=== PATIENT | male | born 1940 | race Caucasian/White ===

== ENCOUNTER 2017-12-28 11:50 | Outpatient (REF) | payer MEDICARE, OTHER, SELFPAY ==
[2017-12-28 22:07] LABS: TSH (W/Ref FT4) 0.65 uIU/mL (0.358-3.74)
== END 2017-12-28 11:51 ==
LOC: NCHCN 11:50
PROVIDERS: Visit Provider Family Medicine
DX: E03.9 Hypothyroidism, unspecified (principal)
CPT/HCPCS: 84443

== ENCOUNTER 2018-01-11 15:52 | Outpatient (REF) | payer MEDICARE, OTHER, SELFPAY | END 2018-01-11 15:53 | LOC: NCHCN 15:52 | PROVIDERS: Visit Provider Family Medicine | DX: L08.89 Other specified local infections of the skin and subcutaneous tissue (principal); I87.2 Venous insufficiency (chronic) (peripheral); S81.802D Unspecified open wound, left lower leg, subsequent encounter | CPT/HCPCS: 87077; 87070; 87186; 87205 ==

== ENCOUNTER 2018-03-29 21:46 | Outpatient (REF) | payer MEDICARE, OTHER, SELFPAY ==
[2018-03-29 22:05] LABS: Abs Immature Grans 0.05 k/cumm (0.0-0.09); Absolute Basophil Count 0.05 k/cumm (0.0-0.2); Absolute Eosinophil Count 0.35 k/cumm (0.0-0.7); Absolute Lymphocyte Count 2.23 k/cumm (1.2-3.4); Absolute Monocyte Count 1.01 k/cumm (0.11-0.7); Absolute Neutrophil Count 6.76 k/cumm (1.2-6.7); Basophils % 0.5; Eosinophils % 3.3; HCT 50.8 % (40.0-50.0); HGB 16.4 g/dL (13.5-17.5); Immature Grans % 0.5; Lymphocytes % 21.3; Mean Corp. HGB Concentration 32.3 g/dL (32.0-36.0); Mean Corpuscular Hemoglobin 31.4 pg (27.0-33.0); Mean Corpuscular Volume 97.3 fL (80-95); Mean Platelet Volume 10.9 fL (8.0-11.0); Monocytes % 9.7; Neutrophils % 64.7; Platelet Count 249 x1000/uL (130-400); RBC 5.22 m/cumm (4.50-6.00); White Blood Cell Count 10.45 k/cumm (4.4-10.8)
[2018-03-29 22:12] LABS: Anion Gap 6.4 mmol/L (3-11); BUN 23 mg/dL (7-18); CO2 33.6 mmol/L (21.0-32.0); CREATININE 1.29 mg/dL (0.70-1.30); Calcium 9.6 mg/dL (8.5-10.1); Chloride 101 mmol/L (98-107); Estimated GFR 54.01 (mL/min/1.73m2); Glucose 91 mg/dL (70-100); Potassium 4.7 mmol/L (3.5-5.1); Sodium 141 mmol/L (136-145)
== END 2018-03-29 22:06 ==
LOC: NCHCN 21:46
PROVIDERS: Visit Provider Family Medicine
DX: N18.9 Chronic kidney disease, unspecified (principal)
CPT/HCPCS: 80048; 85025

== ENCOUNTER 2019-02-21 08:45 | Outpatient (REF) | payer MEDICARE, OTHER, SELFPAY ==
[2019-02-21 21:25] LABS: Anion Gap 5.4 mmol/L (3-11); BUN 28 mg/dL (7-18); CO2 32.6 mmol/L (21.0-32.0); CREATININE 1.19 mg/dL (0.70-1.30); Calcium 8.9 mg/dL (8.5-10.1); Chloride 108 mmol/L (98-107); Estimated GFR 59.12 (mL/min/1.73m2); Glucose 90 mg/dL (70-100); Potassium 4.4 mmol/L (3.5-5.1); Sodium 146 mmol/L (136-145); TSH (W/Ref FT4) 1.11 uIU/mL (0.36-3.74)
[2019-02-21 21:36] LABS: HCT 52.4 % (40.0-50.0); HGB 16.4 g/dL (13.5-17.5); Mean Corp. HGB Concentration 31.3 g/dL (32.0-36.0); Mean Corpuscular Hemoglobin 31.2 pg (27.0-33.0); Mean Corpuscular Volume 99.8 fL (80-95); Mean Platelet Volume 10.7 fL (8.0-11.0); Platelet Count 227 x1000/uL (130-400); RBC 5.25 m/cumm (4.50-6.00); RBC Distribution Width 13.8 % (11.8-14.1); White Blood Cell Count 8.78 k/cumm (4.4-10.8)
== END 2019-02-21 09:05 ==
LOC: NCHCO 08:45
PROVIDERS: Visit Provider Family Medicine
DX: E03.9 Hypothyroidism, unspecified (principal); N18.9 Chronic kidney disease, unspecified; I10 Essential (primary) hypertension; I48.91 Unspecified atrial fibrillation; Z79.01 Long term (current) use of anticoagulants
CPT/HCPCS: 80048; 85027; 84443

== ENCOUNTER 2020-06-28 21:09 | Outpatient (REF) | payer MEDICARE, OTHER, SELFPAY ==
[2020-06-28 17:37] LABS: Anion Gap 6.6 mmol/L (3-11); BUN 25 mg/dL (7-18); CO2 30.4 mmol/L (21.0-32.0); Calcium 8.9 mg/dL (8.5-10.1); Chloride 106 mmol/L (98-107); Glucose 130 mg/dL (74-106); Potassium 4.8 mmol/L (3.5-5.1); Sodium 143 mmol/L (136-145); TSH 1.03 uIU/mL (0.36-3.74)
== END 2020-06-28 21:10 | disposition home or self-care (01) ==
LOC: NCHCN 21:09
PROVIDERS: Visit Provider Family Medicine
DX: E03.9 Hypothyroidism, unspecified (principal); I10 Essential (primary) hypertension
CPT/HCPCS: 80048; 84443

== ENCOUNTER 2020-07-31 10:49 | Outpatient (REF) | payer MEDICARE, OTHER, SELFPAY ==
[2020-07-31 14:09] LABS: Anion Gap 4.3 mmol/L (3-11); BUN 23 mg/dL (7-18); CO2 33.7 mmol/L (21.0-32.0); CREATININE 1.1 mg/dL (0.70-1.30); Calcium 9.1 mg/dL (8.5-10.1); Chloride 107 mmol/L (98-107); Glucose 113 mg/dL (74-106); Potassium 4.6 mmol/L (3.5-5.1); Sodium 145 mmol/L (136-145)
== END 2020-07-31 10:50 | disposition home or self-care (01) ==
LOC: NCHCN 10:49
PROVIDERS: Visit Provider Internal Medicine
DX: I83.028 Varicose veins of left lower extremity with ulcer other part of lower leg (principal); Z51.81 Encounter for therapeutic drug level monitoring; Z79.899 Other long term (current) drug therapy
CPT/HCPCS: 80048

== ENCOUNTER 2021-07-22 15:50 | Outpatient (REF) | payer MEDICARE, OTHER, SELFPAY ==
[2021-07-22 15:05] LABS: Anion Gap 5.3 mmol/L (3-11); BUN 21 mg/dL (7-18); CO2 30.7 mmol/L (21.0-32.0); CREATININE 1.1 mg/dL (0.70-1.30); Calcium 8.8 mg/dL (8.5-10.1); Chloride 106 mmol/L (98-107); Glucose 93 mg/dL (74-106); Potassium 4.8 mmol/L (3.5-5.1); Sodium 142 mmol/L (136-145)
== END 2021-07-22 15:51 | disposition home or self-care (01) ==
LOC: NCHCN 15:50
PROVIDERS: Visit Provider Family Medicine
DX: I10 Essential (primary) hypertension (principal)
CPT/HCPCS: 80048

== ENCOUNTER 2021-10-21 08:50 | Outpatient (REF) | payer MEDICARE, OTHER, SELFPAY ==
[2021-10-21 14:40] LABS: HCT 48.5 % (40.0-50.0); HGB 15.5 g/dL (13.5-17.5); MCH 31.7 pg (27.0-33.0); MCV 99 fL (80-95); MPV 10.1 fL (8.0-11.0); Platelet Count 253 10^3/uL (130-400); RBC 4.89 10^6/uL (4.36-5.78); RDW 13.5 % (11.8-14.1); RDW-SD 50.1 fL
[2021-10-21 14:59] LABS: Hemoglobin A1C 5.9 % (<5.7)
[2021-10-21 15:10] LABS: Anion Gap 7.4 mmol/L (3-11); BUN 23 mg/dL (7-18); CO2 30.6 mmol/L (21.0-32.0); CREATININE 1.3 mg/dL (0.70-1.30); Chloride 105 mmol/L (98-107); Estimated GFR 53.12 (mL/min/1.73m2); Glucose 106 mg/dL (74-106); Sodium 143 mmol/L (136-145); TSH 1.04 uIU/mL (0.36-3.74)
== END 2021-10-21 08:51 | disposition home or self-care (01) ==
LOC: NCHCN 08:50
PROVIDERS: Visit Provider Family Medicine
DX: I10 Essential (primary) hypertension (principal); R73.03 Prediabetes; E03.9 Hypothyroidism, unspecified; I48.91 Unspecified atrial fibrillation; I11.9 Hypertensive heart disease without heart failure; I87.2 Venous insufficiency (chronic) (peripheral)
CPT/HCPCS: 80048; 85027; 83036; 84443

== ENCOUNTER 2022-10-23 13:07 | Outpatient (REF) | payer MEDICARE, SELFPAY ==
[2022-10-23 14:25] LABS: HCT 49.8 % (40.0-50.0); HGB 16.2 g/dL (13.5-17.5); MCH 31.9 pg (27.0-33.0); MCHC 32.5 % (32.0-36.0); MCV 98 fL (80-95); MPV 10.7 fL (8.0-11.0); Platelet Count 196 10^3/uL (130-400); RBC 5.08 10^6/uL (4.36-5.78); RDW 13.8 % (11.8-14.1); RDW-SD 50.6 fL; WBC 7.56 10^3/uL (4.4-10.8)
[2022-10-23 15:05] LABS: Anion Gap 5.3 mmol/L (3-11); BUN 18 mg/dL (7-18); CO2 29.7 mmol/L (21.0-32.0); CREATININE 1.1 mg/dL (0.70-1.30); Calcium 8.9 mg/dL (8.5-10.1); Calculated LDL 64 mg/dL (<100); Chloride 110 mmol/L (98-107); Cholesterol 125 mg/dL (<200); Estimated GFR 67.44 (mL/min/1.73m2); Glucose 114 mg/dL (74-106); HDL Cholesterol 40 mg/dL (40-60); Potassium 4.5 mmol/L (3.5-5.1); Sodium 145 mmol/L (136-145); TSH 2.46 uIU/mL (0.36-3.74); Triglyceride 106 mg/dL (<150)
== END 2022-10-23 13:08 | disposition home or self-care (01) ==
LOC: NCHCN 13:07
PROVIDERS: Visit Provider Family Medicine
DX: I48.91 Unspecified atrial fibrillation (principal); E03.9 Hypothyroidism, unspecified; I10 Essential (primary) hypertension; R73.03 Prediabetes
CPT/HCPCS: 80048; 80061; 85027; 83036; 84443

== ENCOUNTER 2023-03-01 15:58 | Outpatient (REF) | payer MEDICARE, SELFPAY ==
[2023-03-01 16:22] LABS: Anion Gap 5.8 mmol/L (3-11); BUN 26 mg/dL (7-18); CO2 30.2 mmol/L (21.0-32.0); CREATININE 1.5 mg/dL (0.70-1.30); Calcium 9.8 mg/dL (8.5-10.1); Chloride 104 mmol/L (98-107); Estimated GFR 46.19 (mL/min/1.73m2); Glucose 144 mg/dL (74-106); Potassium 4.2 mmol/L (3.5-5.1); Sodium 140 mmol/L (136-145)
== END 2023-03-01 15:59 | disposition home or self-care (01) ==
LOC: NCHCN 15:58
PROVIDERS: Visit Provider Family Medicine
DX: I48.91 Unspecified atrial fibrillation (principal)
CPT/HCPCS: 80048

== ENCOUNTER 2023-06-28 12:27 | Outpatient (REF) | payer MEDICARE, SELFPAY ==
[2023-06-28 15:16] LABS: TSH 0.25 uIU/mL (0.36-3.74)
[2023-06-28 16:03] LABS: Anion Gap 11.4 mmol/L (3-11); BUN 23 mg/dL (7-18); CO2 25.6 mmol/L (21.0-32.0); CREATININE 1.4 mg/dL (0.70-1.30); Calcium 9.7 mg/dL (8.5-10.1); Chloride 106 mmol/L (98-107); Estimated GFR 50.18 (mL/min/1.73m2); Glucose 97 mg/dL (74-106); Potassium 4.5 mmol/L (3.5-5.1); Sodium 143 mmol/L (136-145)
[2023-06-28 17:52] LABS: Hemoglobin A1C 5.8 % (<5.7)
== END 2023-06-28 12:28 | disposition home or self-care (01) ==
LOC: NCHCN 12:27
PROVIDERS: Visit Provider Family Medicine
DX: N18.31 Chronic kidney disease, stage 3a (principal); R73.03 Prediabetes; E03.9 Hypothyroidism, unspecified
CPT/HCPCS: 80048; 83036; 84443

== ENCOUNTER 2023-11-03 15:55 | Outpatient (REF) | payer MEDICARE, SELFPAY ==
[2023-11-03 21:20] LABS: HCT 51.8 % (40.0-50.0); HGB 17.1 g/dL (13.5-17.5); MCH 31.6 pg (27.0-33.0); MCV 96 fL (80-95); Platelet Count 183 10^3/uL (130-400); RBC 5.41 10^6/uL (4.36-5.78); RDW 13.6 % (11.8-14.1); RDW-SD 48.1 fL
[2023-11-03 21:36] LABS: Anion Gap 4.7 mmol/L (3-11); BUN 26 mg/dL (7-18); CO2 31.3 mmol/L (21.0-32.0); CREATININE 1.4 mg/dL (0.70-1.30); Calcium 9.2 mg/dL (8.5-10.1); Chloride 105 mmol/L (98-107); Estimated GFR 50.18 (mL/min/1.73m2); Glucose 141 mg/dL (74-106); Potassium 4.7 mmol/L (3.5-5.1); Sodium 141 mmol/L (136-145); TSH (W/Ref FT4) 0.13 uIU/mL (0.36-3.74)
[2023-11-03 21:52] LABS: FREE T4 1.38 ng/dL (0.76-1.46)
== END 2023-11-03 15:56 | disposition home or self-care (01) ==
LOC: NCHCN 15:55
PROVIDERS: Visit Provider Family Medicine
DX: E03.9 Hypothyroidism, unspecified (principal); N18.31 Chronic kidney disease, stage 3a; I48.91 Unspecified atrial fibrillation
CPT/HCPCS: 80048; 85027; 84439; 84443

== ENCOUNTER 2024-01-27 15:47 | Outpatient (REF) | payer MEDICARE, SELFPAY ==
[2024-01-27 21:32] LABS: TSH 0.78 uIU/Ml (0.36-3.74)
== END 2024-01-27 15:48 | disposition home or self-care (01) ==
LOC: NCHCN 15:47
PROVIDERS: Visit Provider Family Medicine
DX: E03.9 Hypothyroidism, unspecified (principal)
CPT/HCPCS: 84443

== ENCOUNTER 2024-09-04 18:38 | Outpatient (REF) | payer MEDICARE, SELFPAY ==
[2024-09-04 17:44] LABS: Abs Immature Grans 0.04 10^3/uL (0.0-0.06); Absolute Basophil Count 0.07 10^3/uL (0.0-0.2); Absolute Eosinophil Count 0.44 10^3/uL (0.0-0.7); Absolute Monocyte Count 0.66 10^3/uL (0.1-0.8); Absolute Neutrophil Count 6.33 10^3/uL (1.2-6.7); Basophils % 0.7 %; Eosinophils % 4.5 %; HGB 10.8 g/dL (13.5-17.5); Immature Grans % 0.4 %; Lymphocytes % 23.4 %; MCH 30.4 pg (27.0-33.0); MCHC 30.9 % (32.0-36.0); MCV 99 fL (80-95); MPV 11.1 fL (8.0-11.0); Monocytes % 6.7 %; Neutrophils % 64.3 %; Platelet Count 355 10^3/uL (130-400); RBC 3.55 10^6/uL (4.36-5.78); RDW-SD 58.5 fL; WBC 9.84 10^3/uL (4.4-10.8)
[2024-09-04 18:08] LABS: ALT 15 U/L (16-63); AST 15 U/L (15-37); Albumin 2.6 g/dL (3.4-5.0); Alkaline Phosphatase 122 U/L (46-116); Anion Gap 6.4 mmol/L (3-11); BUN 12 mg/dL (7-18); CO2 31.6 mmol/L (21.0-32.0); CREATININE 1.3 mg/dL (0.70-1.30); Calcium 8.7 mg/dL (8.5-10.1); Chloride 105 mmol/L (98-107); Estimated GFR 54.51 (mL/min/1.73m2); Glucose 94 mg/dL (74-106); Sodium 143 mmol/L (136-145); TSH 7.21 uIU/mL (0.36-3.74); Total Protein 6.1 g/dL (6.4-8.2)
[2024-09-04 18:47] LABS: Hemoglobin A1C 5.3 % (<5.7)
== END 2024-09-04 18:39 | disposition home or self-care (01) ==
LOC: NCHCN 18:38
PROVIDERS: Nurse Practitioner Family; Visit Provider Family Medicine
DX: D62 Acute posthemorrhagic anemia (principal); E03.9 Hypothyroidism, unspecified
CPT/HCPCS: 80053; 83036; 84443; 85025

== ENCOUNTER 2024-09-11 18:34 | Outpatient (REF) | payer MEDICARE, SELFPAY ==
[2024-09-11 18:51] LABS: Anion Gap 8.5 mmol/L (3-11); BUN 16 mg/dL (7-18); CO2 31.5 mmol/L (21.0-32.0); CREATININE 1.3 mg/dL (0.70-1.30); Chloride 105 mmol/L (98-107); Estimated GFR 54.51 (mL/min/1.73m2); Glucose 98 mg/dL (74-106); Potassium 4.2 mmol/L (3.5-5.1); Sodium 145 mmol/L (136-145)
[2024-09-11 19:34] LABS: Vitamin B12 274 pg/mL (193-986)
[2024-09-12 18:31] LABS: Folate 5.3 ng/mL (See Note)
== END 2024-09-11 18:35 | disposition home or self-care (01) ==
LOC: NCHCN 18:34
PROVIDERS: Visit Provider Family Medicine
DX: D50.9 Iron deficiency anemia, unspecified (principal); N17.9 Acute kidney failure, unspecified
CPT/HCPCS: 80048; 82607; 82746

== ENCOUNTER 2024-10-03 18:31 | Outpatient (REF) | payer MEDICARE, SELFPAY ==
[2024-10-03 16:38] LABS: Hemoglobin A1C 5.4 % (<5.7)
[2024-10-03 16:48] LABS: Anion Gap 6.1 mmol/L (3-11); BUN 23 mg/dL (7-18); CO2 31.9 mmol/L (21.0-32.0); CREATININE 1.3 mg/dL (0.70-1.30); Calcium 9.1 mg/dL (8.5-10.1); Chloride 107 mmol/L (98-107); Estimated GFR 54.51 (mL/min/1.73m2); Glucose 133 mg/dL (74-106); Potassium 4.2 mmol/L (3.5-5.1); Sodium 145 mmol/L (136-145); TSH 2.26 uIU/mL (0.36-3.74)
[2024-10-03 16:49] LABS: HCT 38.2 % (40.0-50.0); HGB 11.7 g/dL (13.5-17.5); MCH 28.7 pg (27.0-33.0); MCHC 30.6 % (32.0-36.0); MCV 94 fL (80-95); MPV 10.7 fL (8.0-11.0); Platelet Count 347 10^3/uL (130-400); RBC 4.08 10^6/uL (4.36-5.78); RDW 15.5 % (11.8-14.1); RDW-SD 53.7 fL; WBC 9.17 10^3/uL (4.4-10.8)
== END 2024-10-03 18:32 | disposition home or self-care (01) ==
LOC: NCHCN 18:31
PROVIDERS: Visit Provider Family Medicine
DX: R73.03 Prediabetes (principal); D50.0 Iron deficiency anemia secondary to blood loss (chronic); N18.31 Chronic kidney disease, stage 3a; E03.9 Hypothyroidism, unspecified
CPT/HCPCS: 80048; 85027; 83036; 84443

== ENCOUNTER 2025-04-02 21:05 | Outpatient (REF) | payer MEDICARE, OTHER, SELFPAY ==
[2025-04-02 22:19] LABS: Anion Gap 8.4 mmol/L (3-11); BUN 27 mg/dL (9-23); CO2 27.6 mmol/L (20.0-31.0); Calcium 8.8 mg/dL (8.3-10.6); Chloride 106 mmol/L (98-107); Glucose 86 mg/dL (74-106); Potassium 4.6 mmol/L (3.5-5.1); Sodium 142 mmol/L (136-145)
== END 2025-04-02 21:06 | disposition home or self-care (01) ==
LOC: NCHCN 21:05
PROVIDERS: Visit Provider Family Medicine
DX: N18.31 Chronic kidney disease, stage 3a (principal)
CPT/HCPCS: 80048

== ENCOUNTER 2025-04-05 16:36 | Outpatient (REF) | payer MEDICARE, SELFPAY ==
[2025-04-11 14:21] LABS: BP 180 6 RU/mL (<20); BP 230 7 RU/mL (<20)
== END 2025-04-05 16:37 | disposition home or self-care (01) ==
LOC: NCHCN 16:36
PROVIDERS: Visit Provider Family Medicine
DX: Z79.01 Long term (current) use of anticoagulants (principal); I12.9 Hypertensive chronic kidney disease with stage 1 through stage 4 chronic kidney disease, or unspecified chronic kidney disease; N18.31 Chronic kidney disease, stage 3a
CPT/HCPCS: 83516; 83520